=== PATIENT | female | born 1955 | race Caucasian/White ===

== ENCOUNTER 2021-05-14 09:52 | Day surgery (SDC) | payer MEDICARE, BC ==
[~2021-05-14 09:52] MED LIST: Dexamethasone 4 MG/ML SDV ONE; Glycopyrrolate 0.2 MG/ML 5 ML MDV ONE; Lidocaine 1% 20 ML MDV INJECT ONE; Lidocaine 1% with EPINEPHrine 1:100,000 50 ML MDV INJECT SCH; Neostigmine Methylsulfate 1 MG/ML 5 ML Syringe ONE; Ondansetron 4 MG/2 ML SDV ONE; Propofol 200 MG/20 ML SDV ONE; Rocuronium 50 MG/5 ML Vial ONE; Succinylcholine 200 MG/10 ML MDV ONE; fentaNYL 250 MCG/5 ML SDV ONE
[2021-05-14] MEDS ORDERED: Acetaminophen 500 MG Tab PO ONE (10:00)
[2021-05-14] MEDS ORDERED: Dextrose 5%-Lactated Ringers 1,000 ML IV SCH (10:30)
[2021-05-14] MEDS ORDERED: Lidocaine 1% with EPINEPHrine 1:100,000 50 ML MDV ONE (10:34)
[2021-05-14] MEDS ORDERED: Isosulfan Blue 5 ML SDV ONE (10:34)
[2021-05-14] MEDS ORDERED: Bupivacaine 0.5% 50 ML MDV ONE (10:34)
[2021-05-14 10:57] LABS: CORONAVIRUS COVID-19 NAA NEGATIVE (NEGATIVE)
[2021-05-14] MEDS ORDERED: Ketamine 500 MG/5 ML MDV IV SCH (11:00)
[2021-05-14] MEDS ORDERED: Ketamine 16 MG in Sodium Chloride 0.9% 19.84 ML IV SCH (11:00)
[2021-05-14] MEDS ORDERED: Lidocaine 1% with EPINEPHrine 1:100,000 50 ML MDV INJECT ONE ×3 (11:00→12:21)
[2021-05-14] MEDS ORDERED: Sodium Chloride 0.9% 10 ML ONE (12:22)
[2021-05-14] MEDS ORDERED: ePHEDrine 50 MG/ML SDV ONE (12:22)
[2021-05-14] MEDS ORDERED: Lactated Ringers 1,000 ML ONE (13:16)
[2021-05-14] MEDS ORDERED: Ibuprofen 600 MG Tab PO ONE (14:39)
[2021-05-14 16:04] VITALS: BP 125/73; PULSE 69
[2021-05-14] MEDS ORDERED: Ondansetron 4 MG Tab.DIS PO ONE (16:26)
== END 2021-05-14 16:46 | disposition home or self-care (01) ==
LOC: JP.SDS 09:52
PROVIDERS: ATTEND Surgery
DX: D05.11 Intraductal carcinoma in situ of right breast (principal); I10 Essential (primary) hypertension; E78.5 Hyperlipidemia, unspecified; Z01.812 Encounter for preprocedural laboratory examination; Z20.822 Contact with and (suspected) exposure to COVID-19
CPT/HCPCS: 0241U; 19281-RT; 36415; 76000; 76098; 76098-26; 80053; 83735; 84100; 84443; 85027; 86300; 88307; 88342; 93005; A9270-GY; J0330; J1100; J2020; J2405; J2704; J2710; J3010; J3490; J7120; J7121; Q0162; Q9968